=== PATIENT | male | born 1955 | race Caucasian/White ===

== ENCOUNTER 2018-04-05 15:47 | Emergency (ER) | payer OTHER ==
[2018-04-05 16:33] LABS: ADD MAN DIFF? NO
[2018-04-05 16:38] LABS: BASOPHILS % 0.9 % (0.0-2.0); EOSINOPHILS # 0.2 10^3/ul (0.0-0.5); EOSINOPHILS % 3.5 % (0.0-7.0); HEMATOCRIT 28.2 % (42.0-52.0); HEMOGLOBIN 9.7 g/dl (14.0-18.0); LYMPHOCYTES # 1.9 10^3/ul (0.8-2.9); LYMPHOCYTES % 44.7 % (15.0-51.0); MEAN CORPUSCULAR HEMOGLOBIN 29.1 pg (29.0-33.0); MEAN CORPUSCULAR HGB CONC 34.4 g/dl (32.0-37.0); MEAN CORPUSCULAR VOLUME 84.7 fl (82.0-101.0); MONOCYTE # 0.4 10^3/ul (0.3-0.9); NEUTROPHIL # 1.8 10^3/ul (1.6-7.5); NEUTROPHILS % 41.7 % (39.0-77.0); PLATELET COUNT 141 10^3/UL (140-415); RED BLOOD COUNT 3.33 10^6/ul (4.70-6.10); RED CELL DISTRIBUTION WIDTH 16.8 % (11.5-14.5)
[2018-04-05 16:38] LABS: WHITE BLOOD COUNT 4.3 10^3/ul (4.8-10.8)
[2018-04-05 16:54] LABS: ALANINE AMINOTRANSFERASE 32 IU/L (13-69); ALBUMIN 2.5 g/dl (3.3-4.9); ALBUMIN/GLOBULIN RATIO 0.69; ALKALINE PHOSPHATASE 133 IU/L (42-121); ANION GAP 9 (5-13); ASPARTATE AMINO TRANSFERASE 74 IU/L (15-46); BILIRUBIN,INDIRECT 0.8 mg/dl (0-1.1); BILIRUBIN,TOTAL 0.8 mg/dl (0.2-1.3); BLOOD UREA NITROGEN 23 mg/dl (7-20); CALCIUM 7.9 mg/dl (8.4-10.2); CARBON DIOXIDE 21 mmol/L (21-31); CHLORIDE 103 mmol/L (97-110); CREATININE 2.77 mg/dl (0.61-1.24); Estimated GFR 23 mL/min (>60); GLUCOSE 99 mg/dl (70-220); LIPASE 105 U/L (23-300); SODIUM 133 mmol/L (135-144); TOTAL PROTEIN 6.1 g/dl (6.1-8.1)
[2018-04-05 16:59] LABS: INR 1.29; PROTIME 16.3 Sec (11.9-14.9); PT RATIO 1.3
== END 2018-04-05 19:01 | disposition left against medical advice (07) ==
LOC: E/R 15:47
DX: K70.30 Alcoholic cirrhosis of liver without ascites (principal); N18.3 Chronic kidney disease, stage 3 (moderate)
CPT/HCPCS: 36415; 80053; 83690; 85025; 85610; 99283

== ENCOUNTER 2018-04-06 08:02 | Emergency (ER) | payer OTHER ==
[2018-04-06] MEDS: ACETAMINOPHEN 500 MG TAB PO (12:06)
== END 2018-04-06 12:15 | disposition home or self-care (01) ==
LOC: E/R 08:02
DX: R18.8 Other ascites (principal)
CPT/HCPCS: 99285-25; Z7502

== ENCOUNTER 2018-04-21 12:11 | Inpatient (IN) | payer OTHER ==
[2018-04-21 17:08] LABS: ADD MAN DIFF? NO
[2018-04-21 17:10] LABS: WHITE BLOOD COUNT 5.5 10^3/ul (4.8-10.8)
[2018-04-21 17:10] LABS: BASOPHILS % 0.7 % (0.0-2.0); EOSINOPHILS # 0.1 10^3/ul (0.0-0.5); EOSINOPHILS % 1.1 % (0.0-7.0); HEMATOCRIT 29.7 % (42.0-52.0); HEMOGLOBIN 10.3 g/dl (14.0-18.0); LYMPHOCYTES # 1.9 10^3/ul (0.8-2.9); LYMPHOCYTES % 35.2 % (15.0-51.0); MEAN CORPUSCULAR HEMOGLOBIN 28.5 pg (29.0-33.0); MEAN CORPUSCULAR HGB CONC 34.7 g/dl (32.0-37.0); MEAN CORPUSCULAR VOLUME 82.3 fl (82.0-101.0); MEAN PLATELET VOLUME 10.4 fl (7.4-10.4); MONOCYTE # 0.5 10^3/ul (0.3-0.9); MONOCYTES % 9.9 % (0.0-11.0); NEUTROPHIL # 2.9 10^3/ul (1.6-7.5); NEUTROPHILS % 52.9 % (39.0-77.0); PLATELET COUNT 120 10^3/UL (140-415); RED BLOOD COUNT 3.61 10^6/ul (4.70-6.10); RED CELL DISTRIBUTION WIDTH 16.9 % (11.5-14.5)
[2018-04-21 17:27] LABS: ALANINE AMINOTRANSFERASE 40 IU/L (13-69); ALBUMIN 2.6 g/dl (3.3-4.9); ALBUMIN/GLOBULIN RATIO 0.76; ALKALINE PHOSPHATASE 190 IU/L (42-121); ANION GAP 11 (5-13); ASPARTATE AMINO TRANSFERASE 95 IU/L (15-46); BILIRUBIN,INDIRECT 0.4 mg/dl (0-1.1); BILIRUBIN,TOTAL 0.4 mg/dl (0.2-1.3); BLOOD UREA NITROGEN 53 mg/dl (7-20); CALCIUM 8.7 mg/dl (8.4-10.2); CARBON DIOXIDE 22 mmol/L (21-31); CHLORIDE 104 mmol/L (97-110); CREATININE 4.13 mg/dl (0.61-1.24); Estimated GFR 15 mL/min (>60); GLUCOSE 106 mg/dl (70-220); LIPASE 163 U/L (23-300); SODIUM 137 mmol/L (135-144)
[2018-04-21 17:30] LABS: INR 1.11; POTASSIUM 5.4 mmol/L (3.5-5.1); PROTIME 14.5 Sec (11.9-14.9); PT RATIO 1.1
[2018-04-21 17:31] LABS: PARTIAL THROMBOPLASTIN TIME 34.2 Sec (23.0-35.0)
[2018-04-21] MEDS: NA POLYST SULFON 15 GM/60 ML BTL PO (19:01)
[2018-04-21 21:07] LABS: ADD UMIC NO; UR ASCORBIC ACID NEGATIVE (NEGATIVE); UR BILIRUBIN (Dip) NEGATIVE (NEGATIVE); UR BLOOD (Dip) NEGATIVE (NEGATIVE); UR CLARITY SLIGHTLY CLOUDY (CLEAR); UR COLOR AMBER (YELLOW); UR GLUCOSE (Dip) NEGATIVE (NEGATIVE); UR GRANULAR CAST MODERATE /HPF (NONE SEEN); UR KETONES (Dip) NEGATIVE (NEGATIVE); UR LEUKOCYTE ESTERASE (Dip) NEGATIVE Leu/ul (NEGATIVE); UR MUCUS FEW /HPF (NONE SEEN); UR NITRITE (Dip) NEGATIVE (NEGATIVE); UR RBC 3 /HPF (0-5); UR SPECIFIC GRAVITY (Dip) 1.017 (1.003-1.030); UR TOTAL PROTEIN (Dip) NEGATIVE (NEGATIVE); UR UROBILINOGEN (Dip) 1+ mg/dL (NEGATIVE); UR WBC 8 /HPF (0-5)
[2018-04-21] MEDS: ACETAMINOPHEN 325 MG TAB PO (23:01)
[2018-04-21] MEDS ORDERED: NACL 0.9% 3 ML SYG IV (23:30)
[2018-04-21] MEDS ORDERED: ONDANSETRON 4 MG INJ IV (23:30)
[2018-04-21] MEDS ORDERED: ALBUTEROL/IPRATROPIUM (NEB) 3 ML AMP HHN (23:30)
[2018-04-21] MEDS ORDERED: LACTULOSE 30ML CUP PO (23:30)
[2018-04-21] MEDS: FOLIC ACID 1 MG TAB PO (23:55)
[2018-04-21] MEDS: MULTIVITAMINS THERAPEUTIC TAB PO (23:55)
[2018-04-21] MEDS: THIAMINE 100 MG TAB PO (23:56)
[2018-04-21] MEDS: FUROSEMIDE 40 MG INJ IV (23:57)
[2018-04-22] MEDS: ALBUMIN HUMAN 25% 50 ML IV ×3 (00:24→15:36)
[2018-04-22 05:21] LABS: ADD MAN DIFF? NO
[2018-04-22 05:23] LABS: WHITE BLOOD COUNT 4.6 10^3/ul (4.8-10.8)
[2018-04-22 05:23] LABS: BASOPHILS % 0.6 % (0.0-2.0); EOSINOPHILS # 0.1 10^3/ul (0.0-0.5); HEMATOCRIT 25.2 % (42.0-52.0); HEMOGLOBIN 8.8 g/dl (14.0-18.0); LYMPHOCYTES % 42.4 % (15.0-51.0); MEAN CORPUSCULAR HEMOGLOBIN 28.7 pg (29.0-33.0); MEAN CORPUSCULAR HGB CONC 34.9 g/dl (32.0-37.0); MEAN CORPUSCULAR VOLUME 82.1 fl (82.0-101.0); MEAN PLATELET VOLUME 10.6 fl (7.4-10.4); MONOCYTE # 0.4 10^3/ul (0.3-0.9); MONOCYTES % 7.8 % (0.0-11.0); NEUTROPHIL # 2.1 10^3/ul (1.6-7.5); NEUTROPHILS % 45.8 % (39.0-77.0); PLATELET COUNT 106 10^3/UL (140-415); RED BLOOD COUNT 3.07 10^6/ul (4.70-6.10); RED CELL DISTRIBUTION WIDTH 16.7 % (11.5-14.5)
[2018-04-22] MEDS: traMADol 50 MG TAB PO ×3 (05:30→20:32)
[2018-04-22 05:44] LABS: ALANINE AMINOTRANSFERASE 39 IU/L (13-69); ALBUMIN 2.3 g/dl (3.3-4.9); ALBUMIN/GLOBULIN RATIO 0.76; ALKALINE PHOSPHATASE 123 IU/L (42-121); ANION GAP 10 (5-13); ASPARTATE AMINO TRANSFERASE 84 IU/L (15-46); BILIRUBIN,INDIRECT 0.5 mg/dl (0-1.1); BILIRUBIN,TOTAL 0.5 mg/dl (0.2-1.3); BLOOD UREA NITROGEN 56 mg/dl (7-20); CALCIUM 7.8 mg/dl (8.4-10.2); CARBON DIOXIDE 21 mmol/L (21-31); CHLORIDE 106 mmol/L (97-110); Estimated GFR 17 mL/min (>60); GLUCOSE 106 mg/dl (70-220); MAGNESIUM 2.1 mg/dl (1.7-2.5); POTASSIUM 5.1 mmol/L (3.5-5.1); SODIUM 137 mmol/L (135-144); TOTAL PROTEIN 5.3 g/dl (6.1-8.1)
[2018-04-22 08:07] LABS: ALPHA FETOPROTEIN 1.89 IU/L (0.00-7.21)
[2018-04-22] MEDS: FAMOTIDINE 20 MG TAB PO ×2 (09:59→20:32)
[2018-04-22] MEDS: FUROSEMIDE 40 MG TAB PO (09:59)
[2018-04-22] MEDS: LACTULOSE 30ML CUP PO ×5 (10:00→20:32)
[2018-04-22 13:46] LABS: SODIUM,URINE RANDOM < 13 mmol/L (30-90)
[2018-04-22] MEDS: MIDODRINE 5 MG TAB GTB ×2 (15:31→17:00)
[2018-04-22] MEDS: LIDOCAINE 1% (MPF) 5 ML VIAL (16:45)
[2018-04-23] MEDS: traMADol 50 MG TAB PO ×3 (05:21→21:13)
[2018-04-23] MEDS: FAMOTIDINE 20 MG TAB PO ×2 (08:33→21:13)
[2018-04-23] MEDS: MIDODRINE 5 MG TAB GTB ×3 (08:33→17:51)
[2018-04-23] MEDS: FUROSEMIDE 40 MG TAB PO (08:33)
[2018-04-23] MEDS: LACTULOSE 30ML CUP PO ×4 (08:34→21:13)
[2018-04-23 11:10] LABS: ADD MAN DIFF? NO
[2018-04-23 11:12] LABS: BASOPHILS % 0.8 % (0.0-2.0); EOSINOPHILS # 0.1 10^3/ul (0.0-0.5); EOSINOPHILS % 2.7 % (0.0-7.0); HEMATOCRIT 26.2 % (42.0-52.0); HEMOGLOBIN 9.3 g/dl (14.0-18.0); LYMPHOCYTES # 1.9 10^3/ul (0.8-2.9); LYMPHOCYTES % 38.5 % (15.0-51.0); MEAN CORPUSCULAR HGB CONC 35.5 g/dl (32.0-37.0); MEAN CORPUSCULAR VOLUME 81.6 fl (82.0-101.0); MEAN PLATELET VOLUME 10.6 fl (7.4-10.4); MONOCYTE # 0.4 10^3/ul (0.3-0.9); MONOCYTES % 8.1 % (0.0-11.0); NEUTROPHIL # 2.4 10^3/ul (1.6-7.5); NEUTROPHILS % 49.7 % (39.0-77.0); PLATELET COUNT 107 10^3/UL (140-415); RED BLOOD COUNT 3.21 10^6/ul (4.70-6.10); RED CELL DISTRIBUTION WIDTH 16.6 % (11.5-14.5)
[2018-04-23 11:12] LABS: WHITE BLOOD COUNT 4.8 10^3/ul (4.8-10.8)
[2018-04-23 11:38] LABS: ANION GAP 11 (5-13); BLOOD UREA NITROGEN 52 mg/dl (7-20); CALCIUM 8.1 mg/dl (8.4-10.2); CARBON DIOXIDE 21 mmol/L (21-31); CHLORIDE 106 mmol/L (97-110); CREATININE 2.89 mg/dl (0.61-1.24); Estimated GFR 22 mL/min (>60); GLUCOSE 123 mg/dl (70-220); SODIUM 138 mmol/L (135-144)
[2018-04-23 12:49] LABS: CARCINOEMBRYONIC ANTIGEN 6.9 ng/ml (0.0-5.0)
[2018-04-23 12:53] LABS: CANCER ANTIGEN 19-9 49.8 U/ml (0.0-37.0)
[2018-04-23 12:54] LABS: ALPHA FETOPROTEIN 1.67 IU/L (0.00-7.21)
[2018-04-23] MEDS: ALBUMIN HUMAN 25% 100 ML IV ×2 (14:03→22:39)
[2018-04-24 05:59] LABS: ANION GAP 8 (5-13); BLOOD UREA NITROGEN 46 mg/dl (7-20); CALCIUM 8.6 mg/dl (8.4-10.2); CARBON DIOXIDE 25 mmol/L (21-31); CHLORIDE 107 mmol/L (97-110); Estimated GFR 29 mL/min (>60); GLUCOSE 101 mg/dl (70-220); POTASSIUM 4.1 mmol/L (3.5-5.1); SODIUM 140 mmol/L (135-144)
[2018-04-24] MEDS: traMADol 50 MG TAB PO ×3 (06:32→21:24)
[2018-04-24] MEDS: LACTULOSE 30ML CUP PO ×4 (08:41→21:24)
[2018-04-24] MEDS: FUROSEMIDE 40 MG TAB PO (08:41)
[2018-04-24] MEDS: ALBUMIN HUMAN 25% 100 ML IV ×2 (08:43→21:24)
[2018-04-24] MEDS: FAMOTIDINE 20 MG TAB PO ×2 (08:48→21:24)
[2018-04-24] MEDS: MIDODRINE 5 MG TAB GTB ×3 (08:49→17:43)
[2018-04-24] MEDS: LIDOCAINE 1% (MPF) 5 ML VIAL (11:45)
[2018-04-25] MEDS: ALBUMIN HUMAN 25% 100 ML IV ×2 (02:54→09:52)
[2018-04-25] MEDS: traMADol 50 MG TAB PO ×2 (05:40→13:37)
[2018-04-25 06:24] LABS: ANION GAP 7 (5-13); BLOOD UREA NITROGEN 35 mg/dl (7-20); CALCIUM 8.7 mg/dl (8.4-10.2); CARBON DIOXIDE 26 mmol/L (21-31); CHLORIDE 107 mmol/L (97-110); CREATININE 1.42 mg/dl (0.61-1.24); Estimated GFR 51 mL/min (>60); GLUCOSE 104 mg/dl (70-220); POTASSIUM 3.5 mmol/L (3.5-5.1); SODIUM 140 mmol/L (135-144)
[2018-04-25] MEDS: LACTULOSE 30ML CUP PO ×2 (09:41→13:36)
[2018-04-25] MEDS: FAMOTIDINE 20 MG TAB PO (09:42)
[2018-04-25] MEDS: MIDODRINE 5 MG TAB GTB (09:42)
[2018-04-25] MEDS: FUROSEMIDE 40 MG TAB PO (10:41)
== END 2018-04-25 14:10 | disposition home or self-care (01) | DRG 432 ==
LOC: 2NE 04-23 14:40 → E/R 12:11 → 6WM 18:18
DX: K70.31 Alcoholic cirrhosis of liver with ascites (principal); N17.0 Acute kidney failure with tubular necrosis; D61.818 Other pancytopenia; D68.4 Acquired coagulation factor deficiency; D68.9 Coagulation defect, unspecified; E87.5 Hyperkalemia; K72.90 Hepatic failure, unspecified without coma; I12.9 Hypertensive chronic kidney disease with stage 1 through stage 4 chronic kidney disease, or unspecified chronic kidney disease; N18.9 Chronic kidney disease, unspecified; E87.6 Hypokalemia; K59.00 Constipation, unspecified; F10.20 Alcohol dependence, uncomplicated
CPT/HCPCS: 36415; 74176; 74181; 76775; 80048; 80053; 81001; 81003; 82105; 82378; 82436; 83690; 83735; 84133; 84300; 85025; 85610; 85730; 86301; 99285-25; G0378

== ENCOUNTER 2018-05-14 05:35 | Emergency (ER) | payer OTHER ==
[2018-05-14 06:17] LABS: ADD MAN DIFF? NO
[2018-05-14 06:18] LABS: WHITE BLOOD COUNT 4.4 10^3/ul (4.8-10.8)
[2018-05-14 06:18] LABS: BASOPHILS % 0.7 % (0.0-2.0); EOSINOPHILS # 0.1 10^3/ul (0.0-0.5); EOSINOPHILS % 1.4 % (0.0-7.0); HEMOGLOBIN 9.7 g/dl (14.0-18.0); LYMPHOCYTES # 2.1 10^3/ul (0.8-2.9); LYMPHOCYTES % 46.9 % (15.0-51.0); MEAN CORPUSCULAR HEMOGLOBIN 28.6 pg (29.0-33.0); MEAN CORPUSCULAR HGB CONC 34.6 g/dl (32.0-37.0); MEAN CORPUSCULAR VOLUME 82.6 fl (82.0-101.0); MEAN PLATELET VOLUME 11.4 fl (7.4-10.4); MONOCYTE # 0.4 10^3/ul (0.3-0.9); MONOCYTES % 9.1 % (0.0-11.0); NEUTROPHIL # 1.8 10^3/ul (1.6-7.5); NEUTROPHILS % 41.7 % (39.0-77.0); PLATELET COUNT 153 10^3/UL (140-415); RED BLOOD COUNT 3.39 10^6/ul (4.70-6.10); RED CELL DISTRIBUTION WIDTH 18.6 % (11.5-14.5)
[2018-05-14 06:36] LABS: ALANINE AMINOTRANSFERASE 32 IU/L (13-69); ALBUMIN 3.2 g/dl (3.3-4.9); ALKALINE PHOSPHATASE 144 IU/L (42-121); ANION GAP 12 (5-13); ASPARTATE AMINO TRANSFERASE 51 IU/L (15-46); BILIRUBIN,INDIRECT 1.2 mg/dl (0-1.1); BILIRUBIN,TOTAL 1.2 mg/dl (0.2-1.3); BLOOD UREA NITROGEN 22 mg/dl (7-20); CALCIUM 8.6 mg/dl (8.4-10.2); CARBON DIOXIDE 23 mmol/L (21-31); CHLORIDE 105 mmol/L (97-110); CREATININE 1.31 mg/dl (0.61-1.24); Estimated GFR 55 mL/min (>60); GLUCOSE 115 mg/dl (70-220); LIPASE 131 U/L (23-300); SODIUM 140 mmol/L (135-144); TOTAL PROTEIN 6.4 g/dl (6.1-8.1)
[2018-05-14 06:38] LABS: INR 1.18; PROTIME 15.2 Sec (11.9-14.9); PT RATIO 1.2
[2018-05-14 06:39] LABS: PARTIAL THROMBOPLASTIN TIME 31.9 Sec (23.0-35.0)
[2018-05-14 06:55] LABS: POTASSIUM 2.9 mmol/L (3.5-5.1)
[2018-05-14] MEDS: POTASSIUM CHLORIDE (SR) 20 MEQ TAB PO (07:27)
[2018-05-14] MEDS: LIDOCAINE 1% (MPF) 5 ML VIAL (09:38)
== END 2018-05-14 10:30 | disposition home or self-care (01) ==
LOC: E/R 05:35
DX: R18.8 Other ascites (principal); I10 Essential (primary) hypertension; Z87.891 Personal history of nicotine dependence
CPT/HCPCS: 36415; 80053; 83690; 85025; 85610; 85730; 99285-25

== ENCOUNTER 2018-05-24 06:29 | Emergency (ER) | payer OTHER ==
[2018-05-24] MEDS: LIDOCAINE 1% (MPF) 5 ML VIAL (11:38)
== END 2018-05-24 12:50 | disposition home or self-care (01) ==
LOC: E/R 06:29
DX: K74.60 Unspecified cirrhosis of liver (principal); I10 Essential (primary) hypertension; Z87.891 Personal history of nicotine dependence
CPT/HCPCS: 99285-25; Z7502

== ENCOUNTER 2018-05-30 05:39 | Emergency (ER) | payer OTHER ==
[2018-05-30 06:40] LABS: ADD MAN DIFF? NO
[2018-05-30 06:51] LABS: BASOPHILS % 0.8 % (0.0-2.0); EOSINOPHILS # 0.1 10^3/ul (0.0-0.5); EOSINOPHILS % 0.9 % (0.0-7.0); HEMATOCRIT 27.6 % (42.0-52.0); HEMOGLOBIN 9.2 g/dl (14.0-18.0); LYMPHOCYTES # 1.3 10^3/ul (0.8-2.9); LYMPHOCYTES % 24.2 % (15.0-51.0); MEAN CORPUSCULAR HGB CONC 33.3 g/dl (32.0-37.0); MEAN CORPUSCULAR VOLUME 87.1 fl (82.0-101.0); MONOCYTE # 0.4 10^3/ul (0.3-0.9); MONOCYTES % 7.1 % (0.0-11.0); NEUTROPHIL # 3.6 10^3/ul (1.6-7.5); NEUTROPHILS % 66.8 % (39.0-77.0); PLATELET COUNT 154 10^3/UL (140-415); RED BLOOD COUNT 3.17 10^6/ul (4.70-6.10); RED CELL DISTRIBUTION WIDTH 17.9 % (11.5-14.5)
[2018-05-30 06:51] LABS: WHITE BLOOD COUNT 5.3 10^3/ul (4.8-10.8)
[2018-05-30 07:04] LABS: INR 1.08; PROTIME 14.1 Sec (11.9-14.9); PT RATIO 1.1
[2018-05-30 07:05] LABS: ALANINE AMINOTRANSFERASE 30 IU/L (13-69); ALBUMIN 2.8 g/dl (3.3-4.9); ALBUMIN/GLOBULIN RATIO 0.82; ALKALINE PHOSPHATASE 125 IU/L (42-121); ANION GAP 12 (5-13); ASPARTATE AMINO TRANSFERASE 69 IU/L (15-46); BILIRUBIN,INDIRECT 0.3 mg/dl (0-1.1); BILIRUBIN,TOTAL 0.3 mg/dl (0.2-1.3); BLOOD UREA NITROGEN 49 mg/dl (7-20); CALCIUM 8.8 mg/dl (8.4-10.2); CARBON DIOXIDE 23 mmol/L (21-31); CHLORIDE 109 mmol/L (97-110); Estimated GFR 34 mL/min (>60); GLUCOSE 109 mg/dl (70-220); PARTIAL THROMBOPLASTIN TIME 30.4 Sec (23.0-35.0); POTASSIUM 3.9 mmol/L (3.5-5.1); SODIUM 144 mmol/L (135-144); TOTAL PROTEIN 6.2 g/dl (6.1-8.1)
[2018-05-30] MEDS: SOD CHLORIDE 0.9% 500 ML IV (07:39)
[2018-05-30] MEDS: LIDOCAINE 1% (MPF) 5 ML VIAL (08:25)
== END 2018-05-30 10:18 | disposition home or self-care (01) ==
LOC: E/R 05:39
DX: K70.31 Alcoholic cirrhosis of liver with ascites (principal); R39.2 Extrarenal uremia; F17.210 Nicotine dependence, cigarettes, uncomplicated; I10 Essential (primary) hypertension
CPT/HCPCS: 49083; 80053; 85025; 85610; 85730; 99285-25